=== PATIENT | male | born 1995 | race Caucasian/White ===

== ENCOUNTER → 2023-04-22 | Emergency (ER) | payer BC ==
[~2023-04-22] MED LIST: KETOROLAC 30 MG/ML INJ ONE
[2023-04-22 20:26] LABS: Absolute Lymphocytes (CBC) 1.9 K/uL (0.7-4.9); Hematocrit 47.2 % (39.6-49.0); Lymphocytes % 26.2 % (15.3-44.8); MCV 92.7 fL (80-100); MPV 7.4 fL (7.6-11.3); Platelets 271 thou/uL (152-406); RBC Red Blood Cell Count 5.09 M/uL (4.33-5.43)
--- NOTE | 2023-04-22 20:35 | RAD REPORT ---
EXAM DESCRIPTION: Enrico Single View04/22/2023 8:22 pm CLINICAL HISTORY: Chest pain COMPARISON: none FINDINGS: The lungs appear clear of acute infiltrate. The heart is normal size IMPRESSION: No acute abnormalities displayed
[2023-04-22 20:37] LABS: Potassium 3.7 mEq/L (3.5-5.1)
--- NOTE | 2023-04-22 22:05 | EDPHYS ---
Physician Documentation [facility] Name: Aron Norman Age: 27 yrs Sex: Male : 1995 Arrival Date: 04/22/2023 Time: 19:30 Bed DX1 Private MD: ED Physician Hank Cervantes HPI: 04/22 19:57 This 27 yrs old Male presents to ER via Ambulatory with complaints of Chest ec2 Pain, Blurred Vision - X 1MONTH. 19:57 Patient arrives today for evaluation of 3 to 4 months of symptoms. Patient reports that ec2 he has been having some intermittent chest pain with no specific alleviating or exacerbating factors, states that he has some shortness of breath with this as well, states that he has had EKGs to evaluate this with no specific findings identified. Patient reports no medical problems, does vape, no alcohol use. Reports no medica also reports some issues with blurred vision, states that is intermittent without specific alleviating or exacerbating factors. Tion.. Historical: - Allergies: 19:52 No Known Allergies; vc1 - Home Meds: 19:52 None [Active]; vc1 - PMHx: 19:52 None; vc1 - PSHx: 19:52 None; vc1 - Immunization history:: Client reports having NOT received the Covid vaccine. Flu vaccine is not up to date. - Social history:: Smoking status: Reported history of juuling and/or vaping. ROS: 19:57 Constitutional: as per hpi ec2 Exam: 19:57 Constitutional: GEN: NAD Head: atraumatic Eyes: EOMI Ears: External ears are ec2 normal. CV: regular rate LUNGS: no respiratory distress ABD: non-distended SKIN: no evidence of rashes MSK: no evidence of trauma, no reproducible chest wall TTP NEURO: moves all extremities equally, cranial nerves II through XII intact, strength intact all 4 extremities. Vital Signs: 19:53 Weight 68.04 kg; Height 5 ft. 10 in. ; Pain 0/10; vc1 19:54 BP 117 / 71; Pulse 63; Resp 18; Temp 98.5; Pulse Ox 100% ; vc1 22:17 BP 119 / 61; Pulse 69; Resp 18; Pulse Ox 98% ; as6 19:53 Body Mass Index 21.52 (68.04 kg, 177.8 cm) vc1 19:53 Pain Scale: Adult vc1 MDM: 19:45 Patient medically screened. ec2 19:57 Data reviewed: vital signs. ED course: Patient arrives today for evaluation of chest ec2 pain and blurred vision. Examination remarkable for well-appearing nontoxic individual is otherwise in no acute distress with reassuring neurologic examination. Will obtain lab work, EKG, chest x-ray as well as D-dimer. Currently evaluate for processes such as ACS, PE, low suspicion for intracranial process, low suspicion for dissection. 20:09 ED course: EKG independently reviewed and interpreted by me, shows normal sinus rhythm, ec2 rate of 62, no acute ST segment elevations, nonconcerning intervals.. 21:21 ED course: Metabolic profile reassuring, CBC reassuring, D-dimer and troponin within ec2 normal ranges, chest x-ray shows no acute intrathoracic process. . 04/22 19:56 Order name: Basic Metabolic Panel; Complete Time: 21:21 ec2 04/22 19:56 Order name: CBC with Diff; Complete Time: 21:21 ec2 04/22 19:56 Order name: Troponin HS; Complete Time: 21:21 ec2 04/22 19:56 Order name: D-Dimer; Complete Time: 21:21 ec2 04/22 19:56 Order name: XRAY Chest (1 view); Complete Time: 21:21 ec2 04/22 19:56 Order name: EKG; Complete Time: 19:57 ec2 04/22 19:56 Order name: Cardiac monitoring; Complete Time: 21:57 ec2 04/22 19:56 Order name: EKG - Nurse/Tech; Complete Time: 21:57 ec2 04/22 19:56 Order name: IV Saline Lock; Complete Time: 21:57 ec2 04/22 19:56 Order name: Labs collected and sent; Complete Time: 21:57 ec2 04/22 19:56 Order name: O2 Per Protocol; Complete Time: 21:57 ec2 04/22 19:56 Order name: O2 Sat Monitoring; Complete Time: 21:57 ec2 Administered Medications: 21:57 Drug: Ketorolac IVP 15 mg IVP once Route: IVP; Site: right forearm; as6 22:15 Follow up: Response: No adverse reaction as6 Disposition Summary: 04/22/23 22:04 Discharge Ordered Notes: Location: Home ec2 Condition: Stable ec2 Diagnosis - Chest pain, unspecified ec2 - Dyspnea, unspecified ec2 Followup: ec2 - With: Private Physician - When: - Reason: Re-evaluation by your physician Discharge Instructions: - Discharge Summary Sheet ec2 - Nonspecific Chest Pain, Adult ec2 Forms: - Medication Reconciliation Form ec2 - Thank You Letter ec2 - Antibiotic Education ec2 - Prescription Opioid Use ec2 - Patient Portal Instructions ec2 - Leadership Thank You Letter ec2 Signatures: Dispatcher [employer] Naseem Cook RN RN as6 Saniya Yeung RN RN vc1 Hank Cervantes MD MD ec2 Corrections: (The following items were deleted from the chart) 19:58 19:57 Patient arrives today for evaluation of 3 to 4 months of symptoms. Patient ec2 reports that he has been having some intermittent chest pain with no specific alleviating or exacerbating factors, states that he has some shortness of breath with this as well, states that he has had EKGs to evaluate this with no specific findings identified. Patient reports no medical problems, does vape, no alcohol use. Reports no medication.. ec2 19:58 19:57 Constitutional: GEN: NAD Head: atraumatic Eyes: EOMI Ears: External ears are ec2 normal. CV: regular rate LUNGS: no respiratory distress ABD: non-distended SKIN: no evidence of rashes MSK: no evidence of trauma, no reproducible chest wall TTP NEURO: moves all extremities equally ec2
--- NOTE | 2023-04-22 22:05 | ER ---
Nurse's Notes [facility] Name: Aron Norman Age: 27 yrs Sex: Male : 1995 Arrival Date: 04/22/2023 Time: 19:30 Bed DX1 Private MD: Diagnosis: Chest pain, unspecified;Dyspnea, unspecified Presentation: 04/22 19:50 Chief complaint: Patient states: I'm having chest pain blurred vision. I am unable to vc1 get full breath and feel really fatigued. Spouse and/or significant other states: Like every 5th breath its like he can't catch his breath and he is getting more winded. Coronavirus screen: At this time, the client does not indicate any symptoms associated with coronavirus-19. Ebola Screen: Patient negative for fever greater than or equal to 101.5 degrees Fahrenheit, and additional compatible Ebola Virus Disease symptoms Patient denies exposure to infectious person. Patient denies travel to an Ebola-affected area in the 21 days before illness onset. No symptoms or risks identified at this time. Risk Assessment: Do you want to hurt yourself or someone else? Patient reports no desire to harm self or others. Note Occurring for the last 3-4 months. Onset of symptoms is unknown. 19:50 Method Of Arrival: Ambulatory vc1 19:50 Acuity: CHELA 3 vc1 19:54 Initial Sepsis Screen: Does the patient meet any 2 criteria? No. Patient's initial vc1 sepsis screen is negative. Does the patient have a suspected source of infection? No. Patient's initial sepsis screen is negative. Historical: - Allergies: 19:52 No Known Allergies; vc1 - Home Meds: 19:52 None [Active]; vc1 - PMHx: 19:52 None; vc1 - PSHx: 19:52 None; vc1 - Immunization history:: Client reports having NOT received the Covid vaccine. Flu vaccine is not up to date. - Social history:: Smoking status: Reported history of juuling and/or vaping. Screenin:08 Abuse screen: Denies threats or abuse. Nutritional screening: No deficits noted. vc1 Tuberculosis screening: No symptoms or risk factors identified. 22:14 [facility] ED Fall Risk Assessment (Adult) Score/Fall Risk Level 0 - 2 = Low Risk. as6 Assessment: 22:18 General: Appears in no apparent distress. Behavior is calm, cooperative. Pain: Denies as6 pain. Vital Signs: 19:53 Weight 68.04 kg; Height 5 ft. 10 in. ; Pain 0/10; vc1 19:54 BP 117 / 71; Pulse 63; Resp 18; Temp 98.5; Pulse Ox 100% ; vc1 22:17 BP 119 / 61; Pulse 69; Resp 18; Pulse Ox 98% ; as6 19:53 Body Mass Index 21.52 (68.04 kg, 177.8 cm) vc1 19:53 Pain Scale: Adult vc1 ED Course: 19:33 Patient arrived in ED. kj1 19:36 Hank Cervantes MD is Attending Physician. ec2 19:52 Triage completed. vc1 19:53 Arm band placed on right wrist. vc1 20:24 XRAY Chest (1 view) In Process Unspecified. EDMS 22:14 Bed in low position. Call light in reach. Provided Education on: FOLLOW UP WITH as6 cardiology . 22:17 No provider procedures requiring assistance completed. IV discontinued, intact, as6 bleeding controlled, No redness/swelling at site. Pressure dressing applied. Administered Medications: 21:57 Drug: Ketorolac IVP 15 mg IVP once Route: IVP; Site: right forearm; as6 22:15 Follow up: Response: No adverse reaction as6 Medication: 22:14 VIS not applicable for this client. as6 Outcome: 22:04 Discharge ordered by . ec2 22:14 Discharged to home ambulatory, as6 22:14 Condition: stable 22:14 Discharge instructions given to patient, Instructed on discharge instructions, follow up and referral plans. Demonstrated understanding of instructions, follow-up care, 22:18 Patient left the ED. as6 Signatures: Dispatcher [employer] EDTX Swati John kj1 Naseem Moraes RN RN as6 Saniya Yeung RN RN vc1 Hank Cervantes MD MD ec2
[2023-04-23 01:07] VITALS: BP 119/61; TEMP 98.5; O2SAT 98
--- NOTE | 2023-04-23 14:29 | EKG ---
Test Date: 2023-04-22 Test Time: 20:00:53 Threshing Department Supervisor: NAVIN MEASUREMENT RESULTS: Intervals: Rate: 62 NJ: 154 QRSD: 92 QT: 380 QTc: 385 Cameron: P: 69 NJ: 154 QRS: 79 T: 76 INTERPRETIVE STATEMENTS: Normal sinus rhythm Nonspecific ST abnormality Abnormal ECG Compared to ECG 07/12/2014 22:55:44 ST (T wave) deviation now present Electronically Signed On 04-23-23 14:26:15 SCALE MECHANIC by Dorian De Anda
== END ==
LOC: ER 19:30
DX: R07.9 Chest pain, unspecified (principal); R06.00 Dyspnea, unspecified; Z28.310 Unvaccinated for COVID-19
CPT/HCPCS: 36415; 71045; 80048; 84484; 85025; 85379; 93005; 96374; 99284

== ENCOUNTER 2023-06-14 11:15 | Emergency (ER) | payer BC ==
--- OUTSIDE RECORDS SUMMARY | 2023-06-14 11:18 | XMS REPORT | Continuity of Care Document ---
Author Name Unknown Address [address] [facility] [address] [place] [address] [facility] thconnect Address [address] [facility] [place] [address] Care Team Providers Care Welder [employer] Name Role Phone CHICA RESTREPO Primary Care Physician Unav MICHELLE Sánchez Attending Clinician Unavailable Michelle Noel MD Attending Clinician [phone] Jaki Attending Clinician Unavailable LEZBIETA LIRA Attending Clinician UnavailNiharika Llanos Attending Clinician [phone] Elzbieta Jefferson Attending Clinician [phone] MICHELLE NOEL Admitting Clinician Unavailable Jaki Admitting Clinician Unavailable Payers Payer Name Policy Type Policy Number Effective Date Expirati on Date Source [facility] [id number] 2022 00:00:00 [facility] [place] [id number] Problems Condition Name Condition Details Condition Category Status Onset Date Resolution Date Last Treatment Date Treating Clinician Comments Source No known active problems No known active problems Disease [facility] Allergies, Adverse Reactions, Alerts Allergy Name Allergy Type Status Severity Reaction(s) Onset Date Inactive Date Treating Clinician Comments Source NO KNOWN ALLERGIE S Drug Class Active [facility] Social History Social Habit Start Date Stop Date Quantity Comments Source Gender identity [facility] Sexual [facility] Exposure to SARS-CoV-2 (event) 2021-07-27 00:00:00 2021-08-06 17:19:00 Not sure [facility] Sex Assigned At 1995 00:00:00 1995 00:00:00 [facility] Smoking Status Start Date Stop Date Source Light Tobacco [facility] Tobacco smoking consumption unknown [facility] Medications Ordered Medication Name Filled Medication Name Start Date Stop Date Current Medication? Ordering Clinician Indication Dosage Frequency Signature (SIG) Comments Components Source cephALEXin (KEFLEX) 500 mg capsule 08-06 00:00: 00 08-14 04:59 :00 No [id number] 500mg Take 1 capsule by mouth 4 (four) times daily for 7 days. [facility] Vital Signs Vital Name Observation Time Observation Value Comments S ource Systolic blood pressure 2022-10-16 00:45:57 130 mm[Hg] [facility] Diastolic blood pressure 2022-10-16 00:45:57 76 mm[Hg] [facility] Heart rate 2022-10-16 00:45:57 73 /min [facility] Respiratory rate 2022-10-16 00:45:57 16 /min [facility] Oxygen saturation in Arterial blood by Pulse oximetry 2022-10-16 00:45:57 100 /min [facility] Body temperature 2022-10-15 22:01:00 36.89 Christy [facility] Body height 2022-10-15 22:01:00 180.3 cm [facility] Body weight 2022-10-15 22:01:00 65.772 kg [facility] BMI 2022-10-15 22:01:00 20.22 kg/m2 [facility] Height 2022-02-07 00:00:00 71 [in_i] [facility] BMI (Body Mass Index) 2022-02-07 00:00:00 19.5 kg/m2 [facility] BP Systolic 2022-02-07 00:00:00 140 mm[Hg] [facility] Body Weight 2022-02-07 00:00:00 2240 [oz_av] [facility] BP Diastolic 2022-02-07 00:00:00 83 mm[Hg] [facility] Systolic blood pressure 2021-08-06 22:20:00 115 mm[Hg] [facility] Diastolic blood pressure 2021-08-06 22:20:00 78 mm[Hg] [facility] Heart rate 2021-08-06 22:20:00 62 /min [facility] Body temperature 2021-08-06 22:20:00 37.28 Christy [facility] Respiratory rate 2021-08-06 22:20:00 16 /min [facility] Body height 2021-08-06 22:20:00 180.3 cm [facility] Body weight 2021-08-06 22:20:00 66.225 kg [facility] BMI 2021-08-06 22:20:00 20.36 kg/m2 [facility] Oxygen saturation in Arterial blood by Pulse oximetry 2021-08-06 22:20:00 98 /min [facility] Procedures Procedure Date / Time Performed Performing Clinician Source ASSIGNMENT OF BENEFITS 2022-10-16 00:15:05 Docto r Unassigned, [place] [facility] NOTICE OF PRIVACY PRACTICES 2022-10-16 00:14:37 Doctor Unassigned, [place] [facility] XR CHEST 2 VW 2022-10-15 22:39:16 Michelle Noel [facility] TROPONIN I 2022-10-15 22:28:00 Michelle Noel [facility] COMP. METABOLIC PANEL ([id number]) 2022-10-15 22:28:00 Michelle Noel [facility] CBC WITH DIFF 2022-10-15 22:28:00 Michelle Noel [facility] URINALYSIS 2022-10-15 22:28:00 Michelle Noel [facility] URINE DRUG (IMMUNOASSAY) - COMPREHENSIVE DRUG SCREEN W/O REFLEX 2022-10-15 22:28:00 Michelle Noel [facility] CONSENT/REFUSAL FOR DIAGNOSIS AND TREATMENT 2022-10-15 21:55:21 Doctor Unassigned, [place] [facility] Plan of Care Planned Activity Planned Date Details Comments Source Instructions [facility] Encounters Start Date/Time End Date/Time Encounter Type Admission Type Attending [facility] Care Department Encounter ID Source 2022-10-15 17:03:00 2022-10-15 20:02:00 Emergency X [facility] ERT [id number] [facility] 2022-10-15 17:03:00 2022-10-15 20:02:00 Emergency Michelle Noel [facility] ..840.114 [id number] [facility] 2022-02-07 00:00:00 2022-02-07 00:00:00 Outpatient Negro_Wan [facility] [id number] [facility] 2022-02-07 00:00:00 2022-02-07 00:00:00 Radha Tom, SUPERVISOR TAN ROOM: [address] [facility] [address], [place] [address] , Ph. [facility] [id number] [facility] 2022-02-06 00:00:00 2022-02-06 00:00:00 Outpatient Jaki [facility] [id number] [facility] 2021-08-06 17:20:00 2021-08-06 17:37:07 Outpatient ELZBIETA [facility] [id number] [facility] 2021-08-06 17:20:00 2021-08-06 17:37:07 Urgent Care NevinLaurajulianneElzbieta Ochoa [facility] 1..840.114 [id number] [facility] Results Test Description Test Time Test Comments Results Result Co mments Source [facility] (83149)2022-10-15 22:57:14* Test Item Value Reference Range Interpretation Comme nts NA (test code = 7707106201) 140 mmol/L 135-145 K (test code = 8923830594) 4.2 mmol/L 3.5-5.0 CL (test code = 9762612621) 98 mmol/L 98-108 CO2 TOTAL (test code = 8775340024) 29 mmol/L 23-31 AGAP (test code = 9884901068) 13 2-16 BUN (test code = 8251182917) 15 mg/dL 7-23 GLUCOSE (test code = 3178697360) 103 mg/dL 70-110 CREATININE (test code = 2976993058) 0.82 mg/dL 0.60-1.25 TOTAL BILI (test code = 7275759959) 0.8 mg/dL 0.1-1.1 CALCIUM (test code = 9785351006) 9.6 mg/dL 8.6-10.6 T PROTEIN (test code = 6524866434) 8.7 g/dL 6.3-8.2 H ALBUMIN (test code = 1607991835) 5.0 g/dL 3.5-5.0 ALK PHOS (test code = 0515024709) 74 U/L 34-122 ALTv (test code = 1742-6) 24 U/L 5-50 AST(SGOT) (test code = 2330317868) 31 U/L 13-40 eGFR (test code = 6445138054) 112.7 mL/min/1.73m2 LIZ (test code = LIZ) Association of Glomerular Filtration Rate (GFR) and Staging of Kidney Disease* + --+ --+ ------+| GFR (mL/min/1.73 m2) ?| With Kidney Damage ?| ?Without Kidney Damage+ --------+ --------+ +| ?>90 ?| ?Stage one ?| ? Normal ?+ ---+ ---+ -------+| ?60-89 ?| ?Stage two ?| ? Decreased GFR ? + --+ --+ ------+| ?30-59 ?| ?Stage three ?| ? Stage three ? + --+ --+ ------+| ?15-29 ?| ?Stage four ? | ? Stage four ?+ ---+ ---+ -------+| ?<15 (or dialysis) ? ?| ?Stage five ? | ? Stage five ?+ ---+ ---+ -------+ *Each stage assumes the associated GFR level has been in effect for at least three months. ?Stages 1 to 5, with or without kidney disease, indicate chronic kidney disease. Notes: Determination of stages one and two (with eGFR >59mL/min/1.73 m2) requires estimation of kidney damage for at least three months as defined by structural or functional abnormalities of the kidney, manifested by either:Pathological abnormalities or Markers of kidney damage (including abnormalities in the composition of the blood or urine or abnormalities in imaging tests). Lab Interpretation (test code = 40529-3) Abnormal [facility] WITH [id number] 22:52:14* Test Item Value Reference Range Interpretation Comme nts WBC (test code = 6690-2) 8.87 See_Comment [Automated Osmopure] The system which generated this result transmitted reference range: 4.20 - 10.70 10*3/?L. The reference range was not used to interpret this result as normal/abnormal. RBC (test code = 789-8) 4.76 See_Comment [Trueffect] The system which generated this result transmitted reference range: 4.26 - 5.52 10*6/?L. The reference range was not used to interpret this result as normal/abnormal. HGB (test code = 718-7) 15.2 g/dL 12.2-16.4 HCT (test code = 4544-3) 44.4 % 38.4-49.3 MCV (test code = 787-2) 93.3 fL 81.7-95.6 MCH (test code = 785-6) 31.9 pg 26.1-32.7 MCHC (test code = 786-4) 34.2 g/dL 31.2-35.0 RDW-SD (test code = 57560-4) 46.0 fL 38.5-51.6 RDW-CV (test code = 788-0) 13.4 % 12.1-15.4 PLT (test code = 777-3) 303 See_Comment [Automated messa ge] The system which generated this result transmitted reference range: 150 - 328 10*3/?L. The reference range was not used to interpret this result as normal/abnormal. MPV (test code = 64154-0) 9.2 fL 9.8-13.0 L NRBC/100 WBC (test code = 1368443048) 0.0 See_Comment [Automated me ssage] The system which generated this result transmitted reference range: 0.0 - 10.0 /100 WBCs. The reference range was not used to interpret this result as normal/abnormal. NRBC x10^3 (test code = 6071210187) See_Comment [Automated messa ge] The system which generated this result transmitted reference range: 10*3/?L. The reference range was not used to interpret this result as normal/abnormal. GRAN MAT (NEUT) % (test code = 770-8) 51.5 % IMM GRAN % (test code = 8075762573) 0.30 % LYMPH % (test code = 736-9) 36.8 % MONO % (test code = 5905-5) 8.9 % EOS % (test code = 713-8) 1.9 % BASO % (test code = 706-2) 0.6 % GRAN MAT x10^3(ANC) (test code = 3812907685) 4.57 10*3/uL 1.99-6.95 IMM GRAN x10^3 (test code = 9263912387) 0.03 10*3/uL 0.00-0.06 LYMPH x10^3 (test code = 731-0) 3.26 10*3/uL 1.09-3.23 H MONO x10^3 (test code = 742-7) 0.79 10*3/uL 0.36-1.02 EOS x10^3 (test code = 711-2) 0.17 10*3/uL 0.06-0.53 BASO x10^3 (test code = 704-7) 0.05 10*3/uL 0.01-0.09 Lab Interpretation (test code = 33243-4) [facility]normal [facility]2022-02-07 10:27:14* Test Item Value Reference Range Interpretation Comme nts R Eye Uncorrected (test code = R Eye Uncorrected) 20/20 L Eye Uncorrected (test code = L Eye Uncorrected) 20/20 [facility] Notes Date/Time Note Provider Source 2022-10-15 19:51:29 [id number] [id number] [id number]/g4xn72hm8Fn52 19-10-19T19:51:29 Pt given printed and verbal discharge instructions regarding SOB, Chest pain, encouraged hydration,PPt verbalized understanding of instructions, pt awake alert oriented, resp reg unlabored, skin w/d, color appropriate for race, moves all ext well,pt encouraged to follow up with pcp.Advised to seek medical attention for new/prolonged/worsening of symptoms,Symptoms improvedPIV d'cd, dressing to site, catheter in tact.Awake, alert oriented, resp reg unlabored, skin w/d, pt leaving amb with steady gait, in no apparent distress, 52155-5Hniqwfgdb department BrypFC8076-11-86O39:02:20Emergen y department [id number]. 7.2.790574|[id number] for patient [id number] A. Campbell RN[address] Ny[id number] 767REAAKLHNSCASZCPHCRMPVR2818-63- 20T20:02:201.2.840.607693.1.72.3. 15|1.2.840.987983.1.13.104.2.7.2. [id number] Oliva Soler RN [facility] 2022-10-15 16:59:22 vpQ4m7Ng/vmxl5FhTLWw OSrlJSzdllKJr orB6oTEQHHqvTYoE8skEUFUzk6Ue3xP81 19-10-196:59:22 CC: patient presents to the ER with complaints of chest wall pain that began intermittently a few weeks ago, states pain has been constant today. Patient also states he has been having issues with "my breathing" and has tingling down both arms. Denies history of anxiety.PMHx: noneAwake, alert, oriented, resp reg unlabored, skin warm and dry, color appropriate for race, moves all ext without difficulty, amb without assistance. Appears in no distress. 71017-7Awmsairbv department Triage dubzLU5459-69-25X61:01:37[facility] Triage noteTXT1.2.840.687918.1.13.104.2. 7.2.827899|[id number] for patient kpwg47173-9Rmmspmzjc department [id number] M Rivera RN[address] Qh[id number] 170FGONUWXDLGQQNQBLJQSJUM9021-62- 20T17:01:371.2.840.696032.1.72.3. 15|1.2.840.260593.1.13.104.2.7.2. [id number] Renate Bleivns RN [facility]
[2023-06-14] MEDS ORDERED: ONDANSETRON 4 MG/2 ML VIAL ONE (12:22)
[2023-06-14] MEDS ORDERED: VANCOMYCIN 1 GM/VIAL ONE (12:22)
[2023-06-14] MEDS ORDERED: HYDROMORPHONE HCL 1 MG/ML INJ ONE ×2 (12:23→14:24)
[2023-06-14] MEDS ORDERED: NA CHLORIDE 0.9% 250 ML ONE (12:23)
[2023-06-14 12:26] LABS: Absolute Basophils 0.1 K/uL (0-0.5); Absolute Eosinophils 0.2 K/uL (0-0.5); Absolute Lymphocytes (CBC) 1.5 K/uL (0.7-4.9); Absolute Monocytes 1.1 K/uL (0.1-1.3); Absolute Neutrophil 9.2 K/uL (1.8-8.0); Basophils % 0.5 % (0-1.3); Eosinophils % 1.8 % (0-4.4); Hematocrit 44.5 % (39.6-49.0); Hemoglobin 14.5 g/dL (13.6-17.9); Lymphocytes % 12.5 % (15.3-44.8); MCH 30.7 pg (27.0-35.0); MCHC 32.6 g/dL (32.0-36.0); MPV 7.6 fL (7.6-11.3); Monocytes % 8.9 % (3.3-12.3); Neutrophils % 76.3 % (41.7-73.7); Platelets 286 thou/uL (152-406); RBC Red Blood Cell Count 4.73 M/uL (4.33-5.43); Red Cell Distribution Width 14.1 % (12.1-15.2)
[2023-06-14 12:38] LABS: Anion Gap 8.9 mEq/L (5.0-15.0); Bilirubin Total 0.4 mg/dL (0.2-1.0); Potassium 3.9 mEq/L (3.5-5.1)
--- NOTE | 2023-06-14 12:41 | EDPHYS ---
Physician Documentation [facility] Name: Aron Norman Age: 27 yrs Sex: Male : 1995 Arrival Date: 06/14/2023 Time: 11:15 Bed 11 Private MD: ED Physician Whitley Camargo HPI: 06/13 12:05 This 27 yrs old Male presents to ER via Wheelchair with complaints of Groin Pain - sp3 swelling traveling to leg and pelvic. 12:05 27-year-old male with right groin/scrotal abscess who was seen at [facility] sp3 yesterday and placed on Keflex p.o who now presents to the ED with worsening pain and swollen lymph nodes. He states he has been taking the medicine and been applying ice to the area. No abdominal pain, back pain, fever or other signs or symptoms on ROS noted. Remainder are negative.. Historical: - Allergies: 11:25 No Known Allergies; mb9 - PMHx: 11:25 Heart murmur; mb9 - PSHx: 11:25 None; mb9 - Immunization history:: Adult Immunizations up to date. - Infectious Disease History:: Denies. - Social history:: Smoking status: Patient reports the use of cigarette tobacco products, smokes one-half pack cigarettes per day. ROS: 12:06 Constitutional: Negative for fever, chills, and weight loss, Eyes: Negative for injury, sp3 pain, redness, and discharge, ENT: Negative for injury, pain, and discharge, Neck: Negative for injury, pain, and swelling, Cardiovascular: Negative for chest pain, palpitations, and edema, Respiratory: Negative for shortness of breath, cough, wheezing, and pleuritic chest pain, Abdomen/GI: Negative for abdominal pain, nausea, vomiting, diarrhea, and constipation, Back: Negative for injury and pain, : Negative for injury, bleeding, discharge, and swelling, Neuro: Negative for headache, weakness, numbness, tingling, and seizure, Psych: Negative for depression, anxiety, suicide ideation, homicidal ideation, and hallucinations, Allergy/Immunology: Negative for hives, rash, and allergies, Endocrine: Negative for neck swelling, polydipsia, polyuria, polyphagia, and marked weight changes, Hematologic/Lymphatic: Negative for swollen nodes, abnormal bleeding, and unusual bruising, 12:06 All other systems are negative, Exam: 12:07 Constitutional: This is a well developed, well nourished patient who is awake, alert, sp3 and in no acute distress. Head/Face: Normocephalic, atraumatic. Eyes: Pupils equal round and reactive to light, extra-ocular motions intact. Lids and lashes normal. Conjunctiva and sclera are non-icteric and not injected. Cornea within normal limits. Periorbital areas with no swelling, redness, or edema. Neck: Trachea midline, no thyromegaly or masses palpated, and no cervical lymphadenopathy. Supple, full range of motion without nuchal rigidity, or vertebral point tenderness. No Meningismus. Chest/axilla: Normal chest wall appearance and motion. Nontender with no deformity. No lesions are appreciated. Cardiovascular: Regular rate and rhythm with a normal S1 and S2. No gallops, murmurs, or rubs. Normal PMI, no JVD. No pulse deficits. Respiratory: Lungs have equal breath sounds bilaterally, clear to auscultation and percussion. No rales, rhonchi or wheezes noted. No increased work of breathing, no retractions or nasal flaring. Abdomen/GI: Soft, non-tender, with normal bowel sounds. No distension or tympany. No guarding or rebound. No evidence of tenderness throughout. Back: No spinal tenderness. No costovertebral tenderness. Full range of motion. 12:07 Skin: 1 cm x 3 cm area of nonfluctuant swelling at the fold between the scrotum and the right upper leg/groin noted. Proximal inguinal lymphadenopathy mild in nature. Penis and testicular exam are normal.. Vital Signs: 11:24 BP 125 / 69; Pulse 82; Resp 18; Temp 98.5; Pulse Ox 100% ; Weight 70.31 kg; Height 5 mb9 ft. 11 in. ; Pain 10/10; 13:16 BP 118 / 68; Pulse 76; Resp 16; Pulse Ox 100% on R/A; mb9 14:30 BP 112 / 66; Pulse 72; Resp 16; Pulse Ox 100% on R/A; mb9 11:24 Body Mass Index 21.62 (70.31 kg, 180.34 cm) mb9 11:24 Pain Scale: Adult mb9 MDM: 11:38 Patient medically screened. sp3 12:08 Data reviewed: vital signs, nurses notes, lab test result(s). ED course: 27-year-old sp3 male with a skin/cutaneous abscess in the right groin. Patient has a history of MRSA. Now with worsening symptoms, we will obtain CBC and chemistry and administer vancomycin IV. Abscess is too early to be drained however will need close follow-up. I recommended warm compresses instead of ice application. We will discharge him on Bactrim and clindamycin with close follow-up to general surgery as well.. 12:40 ED course: WBC count is 12 which is mildly elevated. Remainder of workup is negative. sp3 We will discharge him home on clindamycin and Bactrim with warm compresses and follow-up with general surgery. He may return here at any time as well if the area becomes worse or fluctuant where we can do the I\T\D here. Today it is not ready for drainage.. 06/13 11:52 Order name: CBC with Diff; Complete Time: 12:40 sp3 06/13 11:52 Order name: CMP; Complete Time: 12:40 sp3 06/13 11:52 Order name: IV Saline Lock; Complete Time: 12:17 sp3 06/13 11:52 Order name: Labs collected and sent; Complete Time: 12:17 sp3 Administered Medications: 12:28 Drug: HYDROmorphone IVP 1 mg IVP once Route: IVP; Site: right antecubital; mb9 13:30 Follow up: Response: No adverse reaction mb9 12:30 Drug: Ondansetron IVP 4 mg IVP once; over 2 minutes Route: IVP; Site: right antecubital;mb9 13:30 Follow up: Response: No adverse reaction mb9 12:32 Drug: vancoMYCIN IVPB 1 grams IVPB once over 2 hrs Route: IVPB; Infused Over: 2 hrs; mb9 Site: right antecubital; 14:59 Follow up: Response: No adverse reaction; IV Status: Completed infusion mb9 14:29 Drug: HYDROmorphone IVP 1 mg IVP once Route: IVP; Site: right antecubital; mb9 14:59 Follow up: Response: No adverse reaction mb9 Disposition Summary: 06/14/23 12:41 Discharge Ordered Notes: Location: Home sp3 Condition: Stable sp3 Diagnosis - Cutaneous abscess of limb, unspecified sp3 Followup: sp3 - With: Private Physician - When: Upon discharge from the Emergency Department - Reason: Continuance of care Discharge Instructions: - Discharge Summary Sheet sp3 - Skin Abscess sp3 Forms: - Medication Reconciliation Form sp3 - Thank You Letter sp3 - Antibiotic Education sp3 - Prescription Opioid Use sp3 - Patient Portal Instructions sp3 - Leadership Thank You Letter sp3 Prescriptions: - Clindamycin HCl 300 mg Oral Capsule - take 1 capsule ORAL route every 6 hours for 10 days; 40 capsule; Refills: 0, sp3 Product Selection Permitted - Bactrim DS 800-160 mg Oral Tablet - take 1 tablet ORAL route every 12 hours for 10 days; 20 tablet; Refills: 0, sp3 Product Selection Permitted Signatures: Dispatcher [employer] Whitley Jerome MD MD sp3 Kristy Parekh RN RN mb9 Corrections: (The following items were deleted from the chart) 11:26 11:25 PMHx: Hypertensive disorder; mb9 mb9
--- NOTE | 2023-06-14 12:41 | ER ---
Nurse's Notes [facility] Name: Aron Norman Age: 27 yrs Sex: Male : 1995 Arrival Date: 06/14/2023 Time: 11:15 Bed 11 Private MD: Diagnosis: Cutaneous abscess of limb, unspecified Presentation: 06/13 11:24 Chief complaint: Patient states: "I went to [facility] yesterday for this abscess on my mb9 right upper testicle and they gave me antibiotics. It's spreading up my groin and the pain isn't getting better". Coronavirus screen: At this time, the client does not indicate any symptoms associated with coronavirus-19. Ebola Screen: No symptoms or risks identified at this time. Initial Sepsis Screen: Does the patient meet any 2 criteria? No. Patient's initial sepsis screen is negative. Does the patient have a suspected source of infection? No. Patient's initial sepsis screen is negative. Risk Assessment: Do you want to hurt yourself or someone else? Patient reports no desire to harm self or others. Onset of symptoms was June 14, 2023. 11:24 Method Of Arrival: Wheelchair 9 11:24 Acuity: CHELA 3 mb9 Triage Assessment: 11:26 General: Appears in no apparent distress. Behavior is calm, cooperative. Pain: mb9 Complains of pain in pelvis. EENT: No signs and/or symptoms were reported regarding the EENT system. Neuro: Garcia Agitation-Sedation Scale (RASS): 0 - Alert and Calm Level of Consciousness is awake, alert, obeys commands, Oriented to person, place, time, situation, Appropriate for age. Cardiovascular: Patient's skin is warm and dry. Respiratory: Airway is patent Respiratory effort is even, unlabored, Respiratory pattern is regular, symmetrical. GI: No signs and/or symptoms were reported involving the gastrointestinal system. : No signs and/or symptoms were reported regarding the genitourinary system. Historical: - Allergies: 11:25 No Known Allergies; mb9 - PMHx: 11:25 Heart murmur; mb9 - PSHx: 11:25 None; mb9 - Immunization history:: Adult Immunizations up to date. - Infectious Disease History:: Denies. - Social history:: Smoking status: Patient reports the use of cigarette tobacco products, smokes one-half pack cigarettes per day. Screenin:33 [facility] ED Fall Risk Assessment (Adult) History of falling in the last 3 months, mb9 including since admission No falls in past 3 months (0 pts) Confusion or Disorientation No (0 pts) Intoxicated or Sedated No (0 pts) Impaired Gait No (0 pts) Mobility Assist Device Used No (0 pt) Altered Elimination No (0 pt) Score/Fall Risk Level 0 - 2 = Low Risk Oriented to surroundings, Maintained a safe environment, Educated pt \\T\\ family on fall prevention, incl call for assistance when getting out of bed. Abuse screen: Denies threats or abuse. Nutritional screening: No deficits noted. Tuberculosis screening: No symptoms or risk factors identified. Assessment: 12:33 Derm: Abscess located on pelvis has clear drainage, is hot to touch, is red, is raised. mb9 12:44 Reassessment: Discharge pending completion of IV antibitotics. mb9 13:30 Reassessment: Patient appears in no apparent distress at this time. No changes from mb9 previously documented assessment. Patient and/or family updated on plan of care and expected duration. Pain level reassessed. 14:59 Reassessment: Patient appears in no apparent distress at this time. No changes from mb9 previously documented assessment. Patient and/or family updated on plan of care and expected duration. Pain level reassessed. Patient is alert, oriented x 3, equal unlabored respirations, skin warm/dry/pink. Vital Signs: 11:24 BP 125 / 69; Pulse 82; Resp 18; Temp 98.5; Pulse Ox 100% ; Weight 70.31 kg; Height 5 mb9 ft. 11 in. ; Pain 10/10; 13:16 BP 118 / 68; Pulse 76; Resp 16; Pulse Ox 100% on R/A; mb9 14:30 BP 112 / 66; Pulse 72; Resp 16; Pulse Ox 100% on R/A; mb9 11:24 Body Mass Index 21.62 (70.31 kg, 180.34 cm) mb9 11:24 Pain Scale: Adult mb9 ED Course: 11:18 Patient arrived in ED. ra3 11:24 Arm band placed on. mb9 11:25 Whitley Camargo MD is Attending Physician. sp3 11:25 Triage completed. mb9 12:17 Kristy Parekh, RN is Primary Nurse. mb9 12:18 CBC with Diff Sent. mb9 12:18 CMP Sent. mb9 12:33 No provider procedures requiring assistance completed. Inserted saline lock: 20 gauge mb9 in right antecubital area, using aseptic technique. 12:34 Placed in gown. Bed in low position. Call light in reach. Side rails up X 1. Provided mb9 Education on: press call light if needing anything. Client placed on continuous cardiac and pulse oximetry monitoring. NIBP monitoring applied. 13:27 Patient requests liquids. mb9 14:17 Patient requests pain medication. mb9 14:48 Missed attempt(s): 22 gauge in left forearm. Bleeding controlled, band aid applied, mb9 catheter tip intact. 14:58 IV discontinued, intact, bleeding controlled, No redness/swelling at site. Pressure mb9 dressing applied. Administered Medications: 12:28 Drug: HYDROmorphone IVP 1 mg IVP once Route: IVP; Site: right antecubital; mb9 13:30 Follow up: Response: No adverse reaction mb9 12:30 Drug: Ondansetron IVP 4 mg IVP once; over 2 minutes Route: IVP; Site: right antecubital;mb9 13:30 Follow up: Response: No adverse reaction mb9 12:32 Drug: vancoMYCIN IVPB 1 grams IVPB once over 2 hrs Route: IVPB; Infused Over: 2 hrs; mb9 Site: right antecubital; 14:59 Follow up: Response: No adverse reaction; IV Status: Completed infusion mb9 14:29 Drug: HYDROmorphone IVP 1 mg IVP once Route: IVP; Site: right antecubital; mb9 14:59 Follow up: Response: No adverse reaction mb9 Medication: 12:34 VIS not applicable for this client. mb9 Outcome: 12:41 Discharge ordered by . sp3 14:59 Discharged to home ambulatory, mb9 14:59 Condition: stable 14:59 Discharge instructions given to patient, Instructed on discharge instructions, follow up and referral plans. Demonstrated understanding of instructions, follow-up care, medications, Prescriptions given X 2, 14:59 Patient left the ED. mb9 Signatures: Whitley Camargo MD MD sp3 Kristy Parekh, DAWNA RN mb9 Laura Ruby Corrections: (The following items were deleted from the chart) 11:25 PMHx: Hypertensive disorder; mb9 mb9
[2023-06-14 21:00] VITALS: BP 112/66; TEMP 98.5; O2SAT 100
== END 2023-06-14 14:59 | disposition home or self-care (01) ==
LOC: ER 11:15
DX: L02.415 Cutaneous abscess of right lower limb (principal); F17.210 Nicotine dependence, cigarettes, uncomplicated
CPT/HCPCS: 96365; 85025; 36415; 80053; 96375; 99284; 96366; J1170 ×2; J2405; J7050